=== PATIENT | male | born 1975 | race Caucasian/White ===

== ENCOUNTER 2017-06-27 17:27 | Emergency (ER) | payer BC ==
[~2017-06-27] VITALS: Ht 188 cm; Wt 82.0 kg
[2017-06-27 17:28] VITALS: BP 161/91; PULSE 74; RESP 18; TEMP 99; O2SAT 100
--- NOTE | 2017-06-27 18:26 | RADRPT ---
EXAM DATE/TIME: 06/27/2017 18:03 [place] COMPARISON: No previous studies available for comparison. INDICATIONS : Patient has laceration to 2nd and 3rd digits from meat wrapper. MEDICAL HISTORY : None. SURGICAL HISTORY : None. ENCOUNTER: Initial ACUITY: 1 day PAIN SCORE: 7/10 LOCATION: Left Hand FINDINGS: Soft tissue injuries involving the palmar aspect of the second and third fingers. No evidence of unde rlying bony injury. No fracture, dislocation or bony destruction. Mineralization is normal. No signif icant articular abnormalities are identified. CONCLUSION: No acute bony injury José Antonio Morrison MD on June 27, 2017 at 18:23 Board Certified Radiologist. This report was verified electronically.
[2017-06-27] MEDS ORDERED: LIDOCAINE HCL 1% 20 ML VIAL ONE (21:54)
[2017-06-27] MEDS ORDERED: LIDOCAINE HCL 1% 20 ML VIAL INFIL ONE (22:00)
[2017-06-27] MEDS ORDERED: TETANUS/DIPHTHERIA TOXOID ADULT 0.5 ML VIAL IM ONE (22:15)
--- NOTE | 2017-06-27 22:21 | PD ---
HPI Chief Complaint: Laceration/Skin Injury Time Seen by Provider: 21:50 Travel History International Travel<30 days: No Contact w/Intl Traveler<30days: No Traveled to known affect area: No History of Present Illness HPI 41-year-old right-hand dominant white male presents emergency department for evaluation of a laceration to his left hand. This had occurred just prior to arrival. He was over a friend's house helping him fixes slicer. He states that the slicer had moved and he went to catch the slicer when he cut his left index and middle finger. He denies any numbness or tingling. He denies any mobility issues. Pain is mild. No exacerbating activity. No alleviating activity. PFSH Past Medical History Narrative Medical Malignant melanoma of the right lower leg Tetanus Vaccination: > 5 Years Past Surgical History Narrative Surgical Excision of malignant melanoma right lower leg Social History Alcohol Use: Yes Tobacco Use: No Allergies-Medications (Allergen,Severity, Reaction): Coded Allergies: No Known Allergies (Unverified , 06/27/17) Reported Meds & Prescriptions Reported Meds & Active Scripts Active No Active Prescriptions or Reported Medications Review of Systems Except as stated in HPI: all other systems reviewed are Neg Physical Exam Narrative GENERAL: This is a well-nourished, well-developed patient, in no apparent distress. SKIN: No rashes, ecchymoses or lesions. Warm and dry. HEAD: Atraumatic. Normocephalic. EYES: PERRL, EOMI, no discharge or injection. No scleral icterus. EARS: Clear NOSE: Nasal turbinates appear normal. THROAT: Mucosa pink and moist. Airway patent. NECK: Trachea midline. supple, moves head freely. LUNGS: Clear to auscultation. CV: Regular in rhythm. ABDOMEN: Soft nontender. EXT: No clubbing cyanosis or edema. Examination the left hand reveals 2 lacerations involving the left index and middle finger. Laceration of the left index finger is of the distal phalanx volar pad and the laceration of the middle fingers over the middle phalanx. These lacerations go into the subcutaneous tissues but no nerve, tendon or joint injury. Patient has full range of motion. Full strength. Intact sensation and good cap refill. Data Data Last Documented VS Vital Signs Date Time Temp Pulse Resp B/P (MAP) Pulse Ox O2 Delivery O2 Flow Rate FiO2 06/27/17 17:28 99.0 74 18 161/91 (114) 100 Room Air Orders Orders Hand, Complete ([id number]) (06/27/17 ) Lidocaine 1% Inj (Xylocaine 1% Inj) (06/27/17 21:54) Lidocaine 1% Inj (Xylocaine 1% Inj) (06/27/17 22:00) Tetanus/Diphtheria Tox Adult (Tetanus/Di (06/27/17 22:15) Ed Discharge Order (06/27/17 22:14) MDM Medical Decision Making Medical Screen Exam Complete: Yes Emergency Medical Condition: Yes Medical Record Reviewed: Yes Interpretation(s) Left hand: Negative Last 24 hours Impressions Hand X-Ray 06/27/17 0000 Signed Impressions: Service Date/Time: Tuesday, June 27, 2017 18:03 - CONCLUSION: No acute bony injury José Antonio Morrison MD Differential Diagnosis MDM: High Differential diagnoses: Fracture, sprain, strain, dislocation, contusion, neurovascular injury Narrative Course Patient lacerations were closed with sutures. Tetanus shot updated. Procedures Procedure Narrative LACERATION LOCATION: Left index finger distal phalanx volar pad LENGTH: 1.7 cm NUMBER OF STITCHES/AARTI: 5 REPAIR: The area of the laceration was prepped with Betadine and sterilely draped. The laceration was infiltrated with 1% lidocaine and 0.5% Marcaine digital block. The wound was copiously irrigated and explored without evidence of foreign body, tendon injury or neurovascular injury. The wound was closed using 6-0 Prolene. This was a simple single layer repair. A sterile dressing was applied. The patient was advised to keep the dressing clean and dry. Patient tolerated the procedure well. LACERATION LOCATION: Left middle finger middle phalanx volar pad LENGTH: 1.7 cm NUMBER OF STITCHES/AARTI: 5 REPAIR: The area of the laceration was prepped with Betadine and sterilely draped. The laceration was infiltrated with 1% lidocaine and 0.5% Marcaine digital block. The wound was copiously irrigated and explored without evidence of foreign body, tendon injury or neurovascular injury. The wound was closed using 6-0 Prolene. This was a simple single layer repair. A sterile dressing was applied. The patient was advised to keep the dressing clean and dry. Patient tolerated the procedure well. Diagnosis Primary Impression: Left hand laceration Patient Instructions: General Instructions Additional Instructions: Rest. Elevation. Keep clean and dry. Daily wound care with soap, water, Neosporin. Tylenol and Advil for pain. Sutures out in 14 days. Return to the ER for any problems. Med/Other Pt SpecificInfo: Wound Care Scripts No Active Prescriptions or Reported Meds Disposition: 01 DISCHARGE HOME Condition: Stable Rios Tapia Jun 27, 2017 22:21
== END 2017-06-27 22:43 | disposition home or self-care (01) ==
LOC: NEPD 17:27
DX: S61.412A Laceration without foreign body of left hand, initial encounter (principal); Z23 Encounter for immunization; W45.8XXA Other foreign body or object entering through skin, initial encounter
CPT/HCPCS: 12002; 73130; 90471; 90714

== ENCOUNTER → 2017-07-09 | Day surgery (SDC) | payer BC ==
[~2017-07-09] VITALS: Ht 185.4 cm; Wt 82.0 kg
[~2017-07-09] MED LIST: ACETAMINOPHEN 1000 MG/100 ML 100 ML IV ONE; ACETAMINOPHEN/HYDROcodone 325 MG/5 MG TAB ONE; BACITRACIN TOP OINT 15 GM TUBE ONE; BUPIVACAINE/EPINEPHRINE 0.25% 50 ML VIAL ONE; CHLORHEXIDINE GLUCONATE 2 % 1 PACK (2 CLOTHS) TOPICAL PRN; FAMO1TAB37 PO; FAMOTIDINE 20 MG/2 ML VIAL ONE; IBUP200T47 PO; LACTATED RINGER'S 1000 ML IV PRN; LIDOCAINE 1%/EPINEPHrine 1:100,000 SOLN 20 ML VIAL ONE; METOPROLOL TARTRATE 25 MG TAB PO PRN; MIDAZOLAM HCL 2 MG/2 ML VIAL ONE; POVIDONE IODINE 5% (ANTISEPSIS KIT) 4 APPLICATIONS EACH NARE PRN; SODIUM CHLORID 0.9% 500 ML IV PRN; ceFAZolin 1,000 MG/NS 100 ML IV SCH
[2017-07-09 08:30] LABS: HEMATOCRIT 44.4 % (39.0-51.0); HEMOGLOBIN 15.8 GM/DL (13.0-17.0); MEAN CELL VOLUME 93.1 FL (80.0-100.0); MEAN CORPUSCULAR HGB CONC 35.5 % (32.0-36.0); MEAN PLATELET VOLUME 7.8 FL (7.0-11.0); PLATELET COUNT 299 TH/MM3 (150-450); RED BLOOD COUNT 4.77 MIL/MM3 (4.50-5.90); RED CELL DISTRIBUTION WIDTH 12.2 % (11.6-17.2); WHITE BLOOD COUNT 10.3 TH/MM3 (4.0-11.0)
[2017-07-09 13:30] VITALS: BP 119/84; PULSE 84; RESP 16; TEMP 98.7; O2SAT 99
--- NOTE | 2017-07-10 16:37 | PD.OP ---
Operative Report Date of Surgery: Jul 09, 2017 Preoperative Diagnosis: (1) Flexor tendon laceration of hand with open wound (2) Numbness and tingling Postoperative Diagnosis: (1) Numbness and tingling (2) Flexor tendon laceration of hand with open wound Procedure: Flexor digitorum profundus repair zone 1 left middle finger (91977 Neurolysis of ulnar and radial digital nerve to left middle finger (64617 x 2) Surgeon: Leland Rivers Trim Machine Operator(s): . Operation and Findings: This is a 41-year-old male who presented after having sustained a laceration to his volar middle finger. By exam a zone 1 flexor digitorum profundus laceration was diagnosed. The patient was also having significant numbness and tingling of his middle fingertip since the incident and was suspected to have a laceration of the radial and/or ulnar digital nerve. Risks benefits and alternative treatments were discussed. All questions were answered. The patient expressed understanding. The patient elected to assume the risks of expiration of his wound and repair of the flexor digitorum profundus tendon as well as repair of his digital nerve lacerations if they were found to be injured. Informed consent was obtained. The surgical site was marked in the preoperative holding bay. Antibodies were given on-call to the operating room. The patient was taken to the operating room. All pressure points were padded. A surgical timeout was performed. After the smooth induction of general anesthesia, an appropriately padded upper extremity tourniquet was placed. A digital block with quarter percent Marcaine with epinephrine was placed. Surgical site was prepped and draped in usual sterile fashion. The upper extremity was exsanguinated using an Esmarch. The tourniquet was inflated to 200 mmHg. The patient's transverse distal P2 laceration was extended in a Tomi fashion proximally and distally. Both ends of the FDP were visualized. The radial and ulnar digital nerves were explored distally to the mid distal phalanx and proximally to the PIP. Both neurovascular bundles were found to be surrounded by scar in the area of the laceration, but not lacerated themselves. They were fully mobilized. Following this attention was turned to the tendon laceration. The laceration was just distal to the A4 claribel. A window was created in the A3 claribel. The pseudo-tendon was debrided. This allowed for retrieval of the proximal FDP which was delivered into the wound distal to the A4 claribel. Both ends of the FDP were held in place with a 25-gauge needle. The ends of the tendon were sharpened with an 11 blade and a tongue depressor. The freshened edges of the tendons were reapproximated with a running 6-0 Prolene in an epitendinous fashion. Following this a 4 core strand was performed in a modified Donovan fashion using 3-0 nylon's. Following this the skin was closed with interrupted 4O nylons and a horizontal mattress fashion. And appropriately padded extension blocking splint was fashioned. The tourniquet was released at 82 minutes. The patient was awoken from anesthesia and arrived stable and doing well to the PACU. All needle sponge and instrument counts were correct 2. Leland Rivers MD Jul 10, 2017 16:37
== END | disposition home or self-care (01) ==
LOC: PHSDC 07:37
PROVIDERS: ATTEND Student in an Organized Health Care Education/Training Program
DX: S66.123A Laceration of flexor muscle, fascia and tendon of left middle finger at wrist and hand level, initial encounter (principal); S64.493A Injury of digital nerve of left middle finger, initial encounter; S61.213A Laceration without foreign body of left middle finger without damage to nail, initial encounter
CPT/HCPCS: 01810; 26350; 36415; 64702; 85027; J0131; J0690; J2250; J3010; J7120